=== PATIENT | male | born 1985 | race Two or more races ===

== ENCOUNTER 2016-08-01 15:40 | Emergency (ER) | payer SELFPAY ==
[~2016-08-01] VITALS: Ht 172.7 cm; Wt 108.0 kg
[2016-08-01 15:56] VITALS: BP 122/71
== END 2016-08-02 00:28 | disposition left against medical advice (07) ==
LOC: ER 15:54
DX: R10.9 Unspecified abdominal pain (principal); Z53.21 Procedure and treatment not carried out due to patient leaving prior to being seen by health care provider

== ENCOUNTER 2017-05-14 12:25 | Emergency (ER) | payer SELFPAY ==
[~2017-05-14] VITALS: Ht 175.3 cm; Wt 97.5 kg
[2017-05-14 13:29] VITALS: BP 150/77
== END 2017-05-14 15:24 | disposition home or self-care (01) ==
LOC: ER 12:25
DX: J04.0 Acute laryngitis (principal); J02.9 Acute pharyngitis, unspecified

== ENCOUNTER 2017-05-17 22:35 | Emergency (ER) | payer SELFPAY ==
[~2017-05-17] VITALS: Ht 172.7 cm; Wt 97.1 kg
[2017-05-17 22:50] VITALS: BP 135/70
== END 2017-05-18 04:27 | disposition left against medical advice (07) ==
LOC: ER 22:41
DX: R10.9 Unspecified abdominal pain (principal); M79.604 Pain in right leg; Z53.21 Procedure and treatment not carried out due to patient leaving prior to being seen by health care provider

== ENCOUNTER 2017-05-31 16:24 | Emergency (ER) | payer SELFPAY ==
[~2017-05-31] VITALS: Ht 172.7 cm; Wt 95.3 kg
[2017-05-31 17:39] VITALS: BP 151/74
[2017-05-31] MEDS ORDERED: LOPERAMIDE HCL 2 MG CAP PO ONE (18:00)
[2017-05-31] MEDS ORDERED: DICYCLOMINE HCL 10 MG CAP PO ONE (18:00)
== END 2017-05-31 18:28 | disposition home or self-care (01) ==
LOC: ER 16:25
DX: R19.7 Diarrhea, unspecified (principal); R11.2 Nausea with vomiting, unspecified
CPT/HCPCS: 99283; J0500

== ENCOUNTER 2017-10-09 17:38 | Emergency (ER) | payer SELFPAY ==
[~2017-10-09] VITALS: Ht 177.8 cm; Wt 99.8 kg
[2017-10-09 19:09] LABS: Basophils # (auto) 0 uL; Basophils % (auto) 0.6 % (0.0-2.0); Eosinophils # (auto) 0.1 uL; Eosinophils % (auto) 1.5 % (0.0-7.0); Hematocrit 41.1 % (41.0-53.0); Hemoglobin 13.8 g/dL (13.5-17.5); Lymphocytes # (auto) 2.9 uL; Lymphocytes % (auto) 41.7 % (10.0-50.0); Mean Corpuscular Hemoglobin 30.8 pg (28.0-32.0); Mean Corpuscular Hgb Conc. 33.7 g/dL (32.0-36.0); Mean Corpuscular Volume 91.2 fL (80.0-100.0); Monocytes # (auto) 0.3 uL; Monocytes % (auto) 4.2 % (0.0-12.0); Neutrophils # (auto) 3.6 uL; Nucleated Red Blood Cells % 0.2 %; Platelet Count (auto) 234 10^3/uL (140-450); Red Cell Distribution Width 13.4 % (11.8-14.3)
[2017-10-09 19:24] LABS: Albumin 3.7 g/dL (3.4-5.0); BUN/Creatinine Ratio 11.7; Calcium 8.6 mg/dL (8.5-10.1); Potassium 3.8 mmol/L (3.5-5.1)
[2017-10-09 19:27] LABS: Bilirubin, Total 0.2 mg/dL (0.2-1.0); Total Protein 7.5 g/dL (6.4-8.2)
[2017-10-09 19:31] LABS: Urine Bacteria NONE SEEN /hpf (None Seen); Urine Blood Negative /uL (Negative); Urine Mucus FEW (None Seen); Urine Specific Gravity 1.021 (1.001-1.035); Urine WBC 20 /hpf (0 - 3)
[2017-10-10] MEDS ORDERED: cefTRIAXone 1GM/10ml IVPUSH 10 ML IV ONE
[2017-10-10] MEDS ORDERED: SODIUM CHLORIDE 0.9% 2,000 ML IV ONE
[2017-10-10] MEDS ORDERED: metroNIDAZOLE 500 MG TAB PO ONE
[2017-10-10 00:43] VITALS: BP 130/72
== END 2017-10-10 00:43 | disposition home or self-care (01) ==
LOC: ER 17:38
DX: T62.91XA Toxic effect of unspecified noxious substance eaten as food, accidental (unintentional), initial encounter (principal); K52.9 Noninfective gastroenteritis and colitis, unspecified; Y92.89 Other specified places as the place of occurrence of the external cause
CPT/HCPCS: 36415; 80053; 81001; 85025; 99284; J7030

== ENCOUNTER 2017-10-25 12:58 | Emergency (ER) | payer SELFPAY ==
[~2017-10-25] VITALS: Ht 172.7 cm; Wt 99.8 kg
[2017-10-25 13:09] VITALS: BP 148/86
== END 2017-10-25 14:21 | disposition home or self-care (01) ==
LOC: ER 13:02
DX: S63.501A Unspecified sprain of right wrist, initial encounter (principal); W18.39XA Other fall on same level, initial encounter; Y93.89 Activity, other specified; Y92.89 Other specified places as the place of occurrence of the external cause; Y99.8 Other external cause status
CPT/HCPCS: 73110

== ENCOUNTER 2018-04-15 00:36 | Emergency (ER) | payer MEDICAID ==
[~2018-04-15] VITALS: Ht 172.7 cm; Wt 97.5 kg
[2018-04-15 01:00] LABS: Basophils # (auto) 0 uL; Basophils % (auto) 0.9 % (0.0-2.0); Eosinophils # (auto) 0.1 uL; Eosinophils % (auto) 2.2 % (0.0-7.0); Hematocrit 42.1 % (41.0-53.0); Hemoglobin 13.9 g/dL (13.5-17.5); Lymphocytes % (auto) 35.1 % (10.0-50.0); Mean Corpuscular Hemoglobin 30.2 pg (28.0-32.0); Mean Corpuscular Volume 91.5 fL (80.0-100.0); Monocytes # (auto) 0.3 uL; Monocytes % (auto) 4.9 % (0.0-12.0); Neutrophils # (auto) 3.2 uL; Neutrophils % (auto) 56.9 % (37.0-80.0); Platelet Count (auto) 226 10^3/uL (140-450); Red Cell Distribution Width 13.5 % (11.8-14.3); White Blood Cell 5.6 10^3/uL (4.4-10.8)
[2018-04-15 01:10] LABS: Urine Bacteria FEW /hpf (None Seen); Urine Blood Negative /uL (Negative); Urine WBC 1 /hpf (0 - 3)
[2018-04-15] MEDS ORDERED: MORPHINE SULFATE 4 MG/ML SYR/VIAL IV ONE (01:15)
[2018-04-15] MEDS ORDERED: ONDANSETRON HCL 4 MG/2 ML VIAL IV ONE (01:15)
[2018-04-15 01:16] LABS: INR 0.91 (0.9-1.15); Partial Thromboplastin Time 27.5 sec (23.78-33.04); Prothrombin Time 9.8 sec (9.27-12.13)
[2018-04-15 01:20] LABS: Albumin 3.5 g/dL (3.4-5.0); Anion Gap 9 (5-15); Aspartate Aminotransferase 17 U/L (15-37); BUN/Creatinine Ratio 11.8; Blood Urea Nitrogen 11 mg/dL (7-18); Calcium 8.3 mg/dL (8.5-10.1); Carbon Dioxide 26 mmol/L (21-32); Chloride 107 mmol/L (98-107); GFR African American 120 mL/min; GFR Non-African American 99 mL/min; Glucose 99 mg/dL (74-106); Magnesium 2.2 mg/dL (1.6-2.6); Potassium 3.8 mmol/L (3.5-5.1); Sodium 142 mmol/L (136-145)
[2018-04-15 01:25] LABS: Alanine Aminotransferase 24 U/L (16-61); Alkaline Phosphatase 58 U/L (45-117); Bilirubin, Total 0.3 mg/dL (0.2-1.0); Total Protein 6.8 g/dL (6.4-8.2)
[2018-04-15 01:26] LABS: Alcohol, Urine < 3.0 mg/dL (0-5); Amphetamine Screen, Urine POSITIVE (NEGATIVE); Barbiturate Scree,Urine NEGATIVE (NEGATIVE); Benzodiazephine Screen, Urine NEGATIVE (NEGATIVE); Cannabinoid Screen, Urine NEGATIVE (NEGATIVE); Cocaine Screen, Urine NEGATIVE (NEGATIVE); Opiate Scree,Urine NEGATIVE (NEGATIVE); Phencyclidine Screen, Urine NEGATIVE (NEGATIVE)
[2018-04-15] MEDS ORDERED: SODIUM CHLORIDE 0.9% 1,000 ML IV ONE (01:45)
[2018-04-15] MEDS ORDERED: FAMOTIDINE (10MG/ML) 2ML VL IV ONE (02:00)
[2018-04-15] MEDS ORDERED: LORazepam 2MG/ML-1ML VIAL IV ONE (02:00)
[2018-04-15] MEDS ORDERED: KETOROLAC TROMETH 30 MG/ML 1ML VIAL IV ONE (02:00)
[2018-04-15 03:55] VITALS: BP 118/67
== END 2018-04-15 04:22 | disposition home or self-care (01) ==
LOC: ER 00:37
DX: R07.2 Precordial pain (principal); K29.00 Acute gastritis without bleeding; F15.10 Other stimulant abuse, uncomplicated
CPT/HCPCS: 36415; 71046; 80053; 80307; 81001; 83735; 84484; 85025; 85610; 85730; 93005; 94761; 96361; 96374; 96375; 99284; J1885; J2060; J2270; J2405; J3490; J7030